=== PATIENT | male | born 1950 | race Caucasian/White ===

== ENCOUNTER 2018-01-18 15:47 | Emergency (ER) | payer MEDICARE, OTHER ==
[2018-01-18 16:29] VITALS: BP 103/64
[2018-01-18] MEDS ORDERED: predniSONE TAB* 20 MG PO ONE (17:09)
[2018-01-18] MEDS ORDERED: Albuterol 2.5 MG/3 ML NEB.SOL* (0.083%) INH ONE (17:09)
--- NOTE | 2018-01-18 17:16 | UC ---
Respiratory Complaint HPI - HPI Summary HPI Summary: 1. ONSET YESTERDAY OF COUGH, HOARSENESS AND CHEST CONGESTION. FEELS WHEEZY AND HAD 102.9 FEVER. 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 2. HAS PARKINSON'S DISEASE AND SO GAIT IS SLIGHTLY UNSTEADY. 2 DAYS AGO PATIENT TOOK A FALL AND LANDED ON RIGHT HIP. IS HAVING DIFFICULTY AMBULATING AND PAIN WITH WEIGHTBEARING SINCE THEN. 3. HEART RATE NOTICED BY RN TO BE IRREGULAR DURING TRIAGE. EKG OBTAINED. PATIENT DENIES CHEST PAIN, NAUSEA. NO HISTORY OF CARDIAC CONDITION. 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 Negative: Dyspnea - Allergies/Home Medications Allergies/Adverse Reactions: Allergies Allergy/AdvReac Type Severity Reaction Status Date / Time No Known Allergies Allergy Verified 01/18/18 16:30 Home Medications: Home Medications oxyCODONE/Acetamin 10/325(NF) [Percocet 10/325 (NF)] 1 tab PO Q4H PRN 01/18/18 [ History Confirmed 01/18/18] PMH/Surg Hx/FS Hx/Imm Hx Other Neurological History: PARKINSONS - Surgical History Surgical History: Yes Surgery Procedure, Year, and Place: right total knee replacement 2011 [facility] [place]. left shoulder rotator cuff repair 2002, 2008 [facility] [place] - Family History Known Family History: Positive: Hypertension - Social History Alcohol Use: Rare Alcohol Amount: 1-2 drinks/day Substance Use Type: None Substance Use Comment - Amount & Last Used: norco Smoking Status (MU): Former Smoker Type: Cigarettes Amount Used/How Often: 1/2 PPD X 30 YRS Length of Time of Smoking/Using Tobacco: 9 YRS Have You Smoked in the Last Year: Yes When Did the Patient Quit Smoking/Using Tobacco: 2004 Household Exposure Type: Cigarettes Review of Systems Constitutional: Fever, Fatigue Respiratory: Shortness Of Breath, Cough, Other - WHEEZE Cardiovascular: Negative Gastrointestinal: Negative Musculoskeletal: Arthralgia All Other Systems Reviewed And Are Negative: Yes Physical Exam Triage Information Reviewed: Yes Appearance: Well-Appearing, No Pain Distress, Well-Nourished Vital Signs: Initial Vital Signs Temp 99.6 F 01/18/18 16:23 Pulse 103 01/18/18 16:23 Resp 14 01/18/18 16:23 BP 103/64 01/18/18 16:23 Pulse Ox 94 01/18/18 16:23 Vital Signs Reviewed: Yes Eyes: Positive: Conjunctiva Clear ENT: Positive: Hearing grossly normal, Pharynx normal, TMs normal Neck: Positive: Supple, Nontender, No Lymphadenopathy Respiratory: Positive: No respiratory distress, No accessory muscle use, Decreased breath sounds, Wheezing - DIFFUSELY Cardiovascular: Positive: Tachycardia - WITH ECTOPY Abdomen Description: Positive: Nontender, Soft Musculoskeletal: Positive: No Edema Neurological: Positive: Alert Psychological: Positive: Age Appropriate Behavior Skin: Negative: rashes UC Diagnostic Evaluation - Laboratory O2 Sat by Pulse Oximetry: 94 Diagnostic Studies Comment: RIGHT HIP XRAY SHOWS OSTEOARTHRITIS BUT NO ACUTE BONY PATHOLOGY - Radiology Xray Interpretation: Positive (See Comments) - CXR SHOWS LEFT LOWER LOBE CONSOLIDATION. Radiology Interpretation Completed By: Radiologist - EKG Cardiac Rate: NL - 99BPM Cardiac Rhythm: Sinus: Normal Ectopy: PACs ST Segment: Normal Re-Evaluation - Re-Evaluation First Eval Re-Evaluation Time: 18:30 - FEELS A BIT BETTER AFTER NEB AND PREDNISONE Change: Improved Respiratory Course/Dx - Course Course Of Treatment: EKG SINUS RHYTHM WITH A SINGLE PAC. PT WITH ECTOPIC BEATS ON EXAM. NO CARDIAC HX. NO CP. ECTOPY MAY BE CONTRIBUTED TO BY CURRENT CONDITION - PNEUMONIA AND HIP INJURY. PT WILL F/U PCP THIS WEEK. - Differential Dx/Diagnosis Provider Diagnoses: 1. LEFT LOWER LOBE PNEUMONIA. 2. RIGHT HIP CONTUSION Discharge - Sign-Out/Discharge Documenting (check all that apply): Discharge/Admit/Transfer - Discharge Plan Condition: Stable Disposition: HOME Prescriptions: levoFLOXacin [Levofloxacin] 750 mg PO DAILY #7 tablet predniSONE TAB* [Deltasone TAB*] 50 mg PO DAILY #2 tab Patient Education Materials: Pneumonia (ED), Hip Contusion (ED) Referrals: Reese Bustos MD [Primary Care Provider] - If Needed Additional Instructions: CHEST XRAY SHOWS LEFT LOWER LOBE PNEUMONIA. TAKE THE ANTIBIOTICS FOR THE FULL 7 DAYS. PREDNISONE FOR 2 MORE DAYS. FOLLOW-UP WITH YOUR PCP THIS WEEK FOR RE- EVALUATION. REPEAT THE CHEST XRAY IN 4-6 WEEKS TO DOCUMENT RESOLUTION. GO TO ER WITHOUT FAIL IF YOU DEVELOP WORSENING SHORTNESS OF BREATH, CHEST PAIN, NAUSEA, SWEATS, DIZZINESS OR ANY OTHER CONCERNING SYMPTOMS. RIGHT HIP XRAY UNREMARKABLE. YOUR SYMPTOMS SHOULD IMPROVE SIGNIFICANTLY OVER THE NEXT 1-2 WEEKS. IF YOU DO NOT IMPROVE EXPECTED FOLLOW-UP WITH YOUR PCP. YOU MAY BENEFIT FROM MORE ADVANCED IMAGING AT THAT TIME. REST. OTC IBUPROFEN OR ALEVE AND/OR TYLENOL NEEDED FOR DISCOMFORT - Billing Disposition and Condition Condition: STABLE Disposition: Home
--- NOTE | 2018-01-18 18:05 | RAD ---
HISTORY: FALL 2 DAYS AGO, PAIN COMPARISONS: None VIEWS: 3, Frontal view of the pelvis with frontal and frog-leg views of the right hip FINDINGS: BONE DENSITY: Normal. BONES: There is no displaced fracture. JOINTS: There is mild right and moderate left osteoarthritis. ALIGNMENT: There is no dislocation. SOFT TISSUES: Unremarkable. OTHER FINDINGS: Degenerative changes noted of the spine. IMPRESSION: 1. OSTEOARTHRITIS. 2. NO RADIOGRAPHIC EVIDENCE FOR HIP FRACTURE. X-RAYS MAY BE NEGATIVE WITH NONDISPLACED HIP FRACTURE, IF THERE IS PERSISTENT CLINICAL CONCERN, RECOMMEND CONSIDERATION OF MRI. IN THE SETTING OF CONTRAINDICATION TO MRI OR LIMITATION IN EMERGENT ACCESS TO MRI, CT WOULD BE SUGGESTED.
--- NOTE | 2018-01-18 18:05 | RAD ---
HISTORY: SOB, WHEEZE, COUGH COMPARISONS: None relevant available at the time of dictation VIEWS: 3: Frontal and lateral views of the chest. FINDINGS: CARDIOMEDIASTINAL SILHOUETTE: The cardiomediastinal silhouette is normal. SJ: The sj are normal. PLEURA: The costophrenic angles are sharp. No pleural abnormalities are noted. LUNG PARENCHYMA: There is confluent alveolar opacification of the left lower lobe. ABDOMEN: The upper abdomen is clear. There is no subphrenic gas. BONES AND SOFT TISSUES: Degenerative changes are noted of the spine and right shoulder. There is postsurgical change to left shoulder. OTHER: None. IMPRESSION: LEFT LOWER LOBE CONSOLIDATION. RECOMMEND FOLLOW-UP UNTIL RESOLUTION TO EXCLUDE UNDERLYING PULMONARY PARENCHYMAL PATHOLOGY.
[2018-01-18] MEDS ORDERED: Levofloxacin TAB* 250 MG PO ONE (18:38)
== END 2018-01-18 19:16 | disposition home or self-care (01) ==
LOC: UCEAST 15:47
DX: J18.9 Pneumonia, unspecified organism (principal); S70.01XA Contusion of right hip, initial encounter; W19.XXXA Unspecified fall, initial encounter; Y93.9 Activity, unspecified; Y92.9 Unspecified place or not applicable; M16.11 Unilateral primary osteoarthritis, right hip; R00.0 Tachycardia, unspecified; G20 Parkinson's disease; Z87.891 Personal history of nicotine dependence; Z82.49 Family history of ischemic heart disease and other diseases of the circulatory system
CPT/HCPCS: 71046; 93005; 99212; A9270-GY; G0463; J7512

== ENCOUNTER 2019-04-07 17:22 | Emergency (ER) | payer MEDICARE, OTHER ==
[2019-04-07] MEDS ORDERED: Tetan/Diph/Pertus SYR(Tdap)* 0.5 ML SYR(BOOSTRIX) use SYR IM ONE (19:44)
--- NOTE | 2019-04-07 20:02 | ED ---
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 Patient tripped and hit his head on the garage floor. Patient denies LOC. Patient also reports an abrasion to the left cheek. The patient rates the pain 0/10 in severity. Symptoms aggravated by nothing. Symptoms alleviated by nothing. Patient denies fever. Patient reports having a tetanus shot within the past year. He does not use blood thinners. - History of Current Complaint Stated Complaint: FALL, FACIAL LACERATION PER PT Time Seen by Provider: 04/07/19 19:44 Hx Obtained From: Patient Mechanism of Injury: Other - Fall Onset/Duration: Sudden Onset, Still Present Aggravating: Nothing Alleviating: Nothing Onset Severity: Mild Current Severity: Mild Pain Intensity: 0 Pain Scale Used: 0-10 Numeric Associated Signs & Symptoms: Negative - Fever, Bruising - Left cheek - Allergy/Home Medications Allergies/Adverse Reactions: Allergies Allergy/AdvReac Type Severity Reaction Status Date / Time No Known Allergies Allergy Verified 01/18/18 16:30 PMH/Surg Hx/FS Hx/Imm Hx Endocrine/Hematology History: Denies: Hx Diabetes, Hx Thyroid Disease Cardiovascular History: Denies: Hx Congestive Heart Failure, Hx Hypertension, Hx Pacemaker/ICD Respiratory History: Denies: Hx Asthma, Hx Chronic Obstructive Pulmonary Disease (COPD), Other Respiratory Problems/Disorders GI History: Denies: Hx Ulcer, Other GI Disorders Musculoskeletal History: Reports: Hx Arthritis - GENERALIZED, Hx Back Problems, Other Musculoskeletal History - SPINAL STENOSIS-GOES OT PAIN CLINIC EVERY FEW MONTHS Sensory History: Reports: Hx Contacts or Glasses - GLASSES Denies: Hx Hearing Aid Opthamlomology History: Reports: Hx Contacts or Glasses - GLASSES Neurological History: Reports: Other Neuro Impairments/Disorders - PARKINSON'S DISEASE, PAIN CLINIC PT Psychiatric History: Denies: Hx Panic Disorder - Surgical History Surgery Procedure, Year, and Place: right total knee replacement [place] [facility] [place]. left shoulder rotator cuff repair 2002, 2008 [facility] [place] Hx Anesthesia Reactions: No Infectious Disease History: No Infectious Disease History: Denies: Hx Hepatitis, Hx Human Immunodeficiency Virus (HIV), Traveled Outside the [place] in Last 30 Days - Family History Known Family History: Positive: Hypertension - Social History Alcohol Use: Rare Alcohol Amount: 1-2 drinks/day Hx Substance Use: No Substance Use Type: Reports: None Substance Use Comment - Amount & Last Used: norco Hx Tobacco Use: Yes Smoking Status (MU): Former Smoker Type: Cigarettes Amount Used/How Often: 1/2 PPD X 30 YRS Length of Time of Smoking/Using Tobacco: 9 YRS Have You Smoked in the Last Year: Yes Review of Systems Negative: Fever Skin: Other - Laceration to left eyebrow Positive: Bruising - Left cheek Neurological: Negative - LOC All Other Systems Reviewed And Are Negative: Yes Physical Exam - Summary Physical Exam Summary: General: Well appearing, no distress HEENT: PERRL, 5cm laceration above left eyebrow, abrasions to left cheek and left nasal bridge without underlying tenderness Cardiovascular: Skin is well perfused Pulmonary: No respiratory distress, no tachypnea Abdomen: Non-distended Skin: 5cm laceration above left eyebrow, abrasions to left cheek and left nasal bridge without underlying tenderness MSK: No cervical tenderness Psych: Normal affect Neuro: A&Ox3, ambulates w steady gait. Triage Information Reviewed: Yes Vital Signs On Initial Exam: Initial Vitals Temp Pulse Resp BP Pulse Ox 98.4 F 84 18 130/89 95 04/07/19 17:25 04/07/19 17:25 04/07/19 17:25 04/07/19 17:25 04/07/19 17:25 Vital Signs Reviewed: Yes Procedures - Laceration/Wound Repair 1 Location: head - Left eyebrow Description: Linear Anesthesia: Local, 1.0%, Lido Length, Depth and Shape: 5cm linear, above left eyebrow Betadine Prep?: No Laceration/Wound Explored: clean Closure: Skin Adhesive, Single Layer Suture Type: Prolene - 6, Vicryl - 1 Number of Sutures: 7 Layer Closure?: Yes Sterile Dressing Applied?: Yes Diagnostics - Vital Signs Vital Signs Temp Pulse Resp BP Pulse Ox 04/07/19 17:25 98.4 F 84 18 130/89 95 - Laboratory Lab Statement: Any lab studies that have been ordered have been reviewed, and results considered in the medical decision making process. - CT Brain CT Interpretation Completed By: Radiologist Summary of CT Findings: 1. No intracranial bleed, suspicious mass, or mass effect. Ventricles appear unremarkable. 2. There is low attenuation change in the white matter most consistent with chronic age related small vessel ischemic change. No acute territorial infarction is seen. These can be initially occult on head CT. 3. Soft tissue injury anterior scalp. No skull fracture. 4. Minimal sinus disease. Dr. Daniel has reviewed this radiology report. Re-Evaluation - Re-Evaluation First Eval Comment: CT negative, laceration repaired. Patient ambulated in the department. Laceration Repair Course/Dx - Course Course Of Treatment: 69-year-old male presents with mechanical ground-level fall and laceration above left eyebrow. Up-to-date on tetanus. Check a head CT , lac repair. - Clinical Impression Provider Diagnoses: Laceration, Closed head injury Discharge ED - Sign-Out/Discharge Documenting (check all that apply): Patient Departure - Discharge Patient Received Moderate/Deep Sedation with Procedure: No - Discharge Plan Condition: Stable Disposition: HOME Patient Education Materials: Laceration (ED), Fall Prevention (ED) Referrals: Reese Bustos MD [Primary Care Provider] - Additional Instructions: Aroldo was seen in the emergency department after fall. His head CT did not show any abnormality's. You received sutures (stitches) today. These need to be removed in 7 days. Please keep the area dry and clean. Return to the emergency department or seek medical attention for drainage, redness to the area , increased pain around the laceration. Once the wound is healed, you can apply sunscreen to help with scar prevention. - Billing Disposition and Condition Condition: STABLE Disposition: Home - Attestation Statements Document Initiated by Hubert: Yes Documenting Scribe: Fredy Sheridan Provider For Whom Hubert is Documenting (Include Credential): Nathaniel Daniel MD Scribe Attestation: I, Fredy Sheridan, scribed for Nathaniel Daniel MD on 04/07/19 at 2329. Scribe Documentation Reviewed: Yes Provider Attestation: The documentation as recorded by the Fredy jorgensen accurately reflects the service I personally performed and the decisions made by me, Nathaniel Daniel MD Status of Scribe Document: Viewed
[2019-04-07] MEDS ORDERED: Bacitracin OINTMENT* 0.5% 0.5 oz TUBE TOPICAL ONE (20:38)
[2019-04-07 21:24] VITALS: BP 119/81
== END 2019-04-07 21:23 | disposition home or self-care (01) ==
LOC: ED 17:22
DX: S01.112A Laceration without foreign body of left eyelid and periocular area, initial encounter (principal); S09.90XA Unspecified injury of head, initial encounter; W01.0XXA Fall on same level from slipping, tripping and stumbling without subsequent striking against object, initial encounter; Y92.015 Private garage of single-family (private) house as the place of occurrence of the external cause; J32.9 Chronic sinusitis, unspecified; G20 Parkinson's disease; Z96.651 Presence of right artificial knee joint; Z87.891 Personal history of nicotine dependence
CPT/HCPCS: 12013; 70450; 90471; 99282; A9270-GY

== ENCOUNTER 2020-01-25 20:32 | Inpatient (IN) ==
[2020-01-25] MEDS ORDERED: Albuterol HFA INHALER 8 gm MDI INH ONE (21:01)
[2020-01-25 21:54] LABS: ABS Lymphocytes 0.6 10^3/ul (1.0-4.8); ABS Monocytes 0.4 10^3/ul (0-0.8); Eosinophil % 0.1 %; Hematocrit 35 % (42-52); Hemoglobin 11.3 g/dL (14.0-18.0); Lymphocyte % 8.7 %; Mean Corpuscular HGB Conc 33 g/dL (31-36); Mean Corpuscular Hemoglobin 25 pg (27-31); Mean Corpuscular Volume 76 fL (80-94); Mean Platelet Volume 10.5 fL (7.4-10.4); Nucleated Red Blood Cells % 0.2; Platelet Count 106 10^3/uL (150-450); Red Blood Count 4.57 10^6 /uL (4.18-5.48); Red Cell Distribution Width 17 % (10-15); White Blood Count 6.8 10^3/uL (3.5-10.8)
[2020-01-25] MEDS ORDERED: cefTRIAXone 1 gm/50 mL NS BAG 1 GM/50 ML BAG IVPB ONE (22:01)
[2020-01-25] MEDS ORDERED: Azithromycin 500 mg/250 ml NS 500 MG/250 ML BAG IVPB ONE (22:02)
[2020-01-25 22:06] LABS: Activated Partial Thrombo Time 24.9 seconds (26.0-38.0); INR 1.42 (0.82-1.09)
[2020-01-25 22:14] LABS: Urine Appearance Cloudy; Urine Bilirubin Negative (Negative); Urine Blood 1+ (Negative); Urine Color Amber; Urine Glucose Negative (Negative); Urine Ketones Trace (Negative); Urine Nitrite Negative (Negative); Urine Protein 2+(100 mg/dL) (Negative); Urine Specific Gravity 1.027 (1.010-1.030); Urine Urobilinogen Negative (Negative)
[2020-01-25 22:20] LABS: Urine Bacteria 1+ (Absent); Urine Granular Casts Present (Absent); Urine Red Blood Cell 3+(>10/hpf) (Absent); Urine Squamous Epithelial Cell Present (Absent); Urine White Blood Cell 1+(6-10/hpf) (Absent)
[2020-01-25 22:23] LABS: ALT < 3 U/L (7-52); AST 8 U/L (13-39); Albumin 3.3 g/dL (3.2-5.2); Alkaline Phosphatase 153 U/L (34-104); Anion Gap 10 mmol/L (2-11); Blood Urea Nitrogen 53 mg/dL (6-24); CO2 Carbon Dioxide 22 mmol/L (22-32); Calcium 9.3 mg/dL (8.6-10.3); Chloride 103 mmol/L (101-111); EGFR African American 62.7 (>60); EGFR Non-African American 51.8 (>60); Globulin 3.2 g/dL (2-4); Glucose 143 mg/dL (70-100); Indirect Bilirubin 0.5 mg/dL (0.3-1.0); Potassium 3.7 mmol/L (3.5-5.0); Sodium 135 mmol/L (135-145); Total Protein 6.5 g/dL (6.4-8.9)
[2020-01-25] MEDS ORDERED: Iodixanol (CONTRAST) 320 MG/ML 100 ML SDV IV ONE (22:30)
[2020-01-25 22:34] LABS: Troponin I 0.03 ng/mL (<0.03)
[2020-01-25] MEDS ORDERED: Lactated Ringers 1000 ml BAG 1,000 ML IV ONE (22:36)
[2020-01-25] MEDS ORDERED: oxyCODONE/Acetamin 10/325(NF) TAB PO PRN (23:37)
[2020-01-26] MEDS ORDERED: Lactated Ringers 1000 ml BAG 1,000 ML IV SCH (01:00)
[2020-01-26] MEDS ORDERED: Enoxaparin 30 MG/0.3 ML SYR(*) SUBCUT SCH (01:00)
[2020-01-26] MEDS: Lidocaine PATCH 5% PATCH TRANSDERM SCH ×2 (02:28→10:54)
[2020-01-26 03:16] LABS: Influenza A Molecular Negative (Negative); Influenza B Molecular Negative (Negative)
[2020-01-26 08:03] LABS: C Reactive Protein 258.25 mg/L (<8.01)
[2020-01-26 08:08] LABS: Troponin I 0.04 ng/mL (<0.03)
[2020-01-26] MEDS: ceFAZolin 2 GM PREMIX in ORs 2 GM/50 ML BAG IVPB SCH ×2 (10:45→17:36)
[2020-01-26] MEDS: LINACLOTIDE 145 MG PO SCH (10:55)
[2020-01-26] MEDS: SOLIFENACIN 10 MG PO SCH (10:55)
[2020-01-26 12:55] LABS: ABS Lymphocytes 0.6 10^3/ul (1.0-4.8); ABS Monocytes 0.3 10^3/ul (0-0.8); Eosinophil % 0.3 %; Hematocrit 31 % (42-52); Hemoglobin 10.5 g/dL (14.0-18.0); Lymphocyte % 9.1 %; Mean Corpuscular HGB Conc 34 g/dL (31-36); Mean Corpuscular Hemoglobin 25 pg (27-31); Mean Corpuscular Volume 75 fL (80-94); Mean Platelet Volume 10.8 fL (7.4-10.4); Nucleated Red Blood Cells % 0.2; Platelet Count 80 10^3/uL (150-450); Red Blood Count 4.18 10^6 /uL (4.18-5.48); Red Cell Distribution Width 17 % (10-15); White Blood Count 6.7 10^3/uL (3.5-10.8)
[2020-01-26 13:46] LABS: BUN/Creatinine Ratio 41.7 (8-20); Calcium 8.6 mg/dL (8.6-10.3); EGFR African American 58.7 (>60); EGFR Non-African American 48.5 (>60); Potassium 3.8 mmol/L (3.5-5.0)
[2020-01-26 13:49] LABS: Microcytosis 2+
[2020-01-26 13:51] LABS: Burr Cells 1+
[2020-01-26] MEDS ORDERED: Gadoteridol (CONTRAST) 279.3 MG/ML 10 ML IV ONE (14:27)
[2020-01-26] MEDS ORDERED: Lorazepam PYXIS KEY PRN (14:27)
[2020-01-26] MEDS ORDERED: LORazepam 2 mg VIAL 1 ml IV PUSH ONE (14:28)
[2020-01-26] MEDS ORDERED: Perflutren Lipid Microsphere 3 ML VIAL ONE (14:43)
[2020-01-26] MEDS: CARBIDOPA LEVODOPA PO SCH (17:37)
[2020-01-26] MEDS ORDERED: Furosemide 20 mg/2 ml IV VIAL IV ONE (19:42)
[2020-01-26] MEDS ORDERED: Morphine 2 MG/ML SYRINGE ONE (20:04)
[2020-01-26] MEDS: Morphine 2 MG/ML SYRINGE IV PRN (20:07)
[2020-01-26] MEDS ORDERED: CARBIDOPA LEVODOPA PO SCH (21:00)
[2020-01-26] MEDS ORDERED: cefTRIAXone 1 gm/50 mL NS BAG 1 GM/50 ML BAG IVPB SCH (22:00)
[2020-01-26] MEDS ORDERED: Azithromycin IV(*) 250 MG in NS 0.9% 250 ml 250 ML IVPB SCH (22:00)
[2020-01-26] MEDS: Lidocaine Patch REMOVE PATCH PATCH OFF SCH (22:12)
[2020-01-27] MEDS: ceFAZolin 2 GM PREMIX in ORs 2 GM/50 ML BAG IVPB SCH ×3 (01:07→16:25)
[2020-01-27 05:18] LABS: ABS Lymphocytes 1.1 10^3/ul (1.0-4.8); ABS Monocytes 0.6 10^3/ul (0-0.8); Eosinophil % 0.3 %; Hematocrit 30 % (42-52); Hemoglobin 9.9 g/dL (14.0-18.0); Lymphocyte % 11.6 %; Mean Corpuscular HGB Conc 33 g/dL (31-36); Mean Corpuscular Hemoglobin 25 pg (27-31); Mean Corpuscular Volume 75 fL (80-94); Mean Platelet Volume 10.8 fL (7.4-10.4); Nucleated Red Blood Cells % 0.1; Platelet Count 84 10^3/uL (150-450); Red Blood Count 4.03 10^6 /uL (4.18-5.48); Red Cell Distribution Width 18 % (10-15); White Blood Count 9.5 10^3/uL (3.5-10.8)
[2020-01-27 05:29] LABS: ALT 3 U/L (7-52); AST 10 U/L (13-39); Albumin 2.8 g/dL (3.2-5.2); Alkaline Phosphatase 171 U/L (34-104); Anion Gap 9 mmol/L (2-11); BUN/Creatinine Ratio 40.8 (8-20); Blood Urea Nitrogen 60 mg/dL (6-24); C Reactive Protein 251.12 mg/L (<8.01); CO2 Carbon Dioxide 23 mmol/L (22-32); Calcium 8.4 mg/dL (8.6-10.3); Chloride 103 mmol/L (101-111); EGFR African American 57.3 (>60); EGFR Non-African American 47.4 (>60); Globulin 2.8 g/dL (2-4); Glucose 113 mg/dL (70-100); Potassium 3.7 mmol/L (3.5-5.0); Sodium 135 mmol/L (135-145); Total Protein 5.6 g/dL (6.4-8.9)
[2020-01-27] MEDS: Morphine 2 MG/ML SYRINGE IV PRN ×4 (07:04→16:32)
[2020-01-27] MEDS: CARBIDOPA LEVODOPA PO SCH (07:53)
[2020-01-27] MEDS: LINACLOTIDE 145 MG PO SCH (07:53)
[2020-01-27] MEDS: SOLIFENACIN 10 MG PO SCH (07:54)
[2020-01-27] MEDS: Enoxaparin 30 MG/0.3 ML SYR(*) SUBCUT SCH (07:54)
[2020-01-27] MEDS: Lidocaine PATCH 5% PATCH TRANSDERM SCH (07:55)
[2020-01-27] MEDS ORDERED: Diazepam 5 mg TAB (*) PO ONE (09:24)
[2020-01-27] MEDS ORDERED: LORazepam 2 mg VIAL 1 ml IV PUSH ONE (09:29)
[2020-01-27] MEDS ORDERED: Lorazepam PYXIS KEY PRN (09:29)
[2020-01-27] MEDS ORDERED: CMCS: Carbidopa/Levodopa ODT (NF) 25/100 ODT PO SCH ×2 (10:00→21:00)
[2020-01-27] MEDS ORDERED: Acetaminophen IV 1 GM/100ML 100 ML IVPB SCH (13:30)
[2020-01-27] MEDS: CMCS: Carbidopa/Levodopa ODT (NF) 25/100 ODT PO SCH ×3 (13:36→20:36)
[2020-01-27 15:12] LABS: Amylase 12 U/L (29-103)
[2020-01-27] MEDS: Lidocaine Patch REMOVE PATCH PATCH OFF SCH (21:24)
[2020-01-28] MEDS: Morphine 2 MG/ML SYRINGE IV PRN ×3 (00:16→12:43)
[2020-01-28] MEDS: ceFAZolin 2 GM PREMIX in ORs 2 GM/50 ML BAG IVPB SCH ×2 (00:30→11:55)
[2020-01-28 07:02] LABS: ALT < 3 U/L (7-52); AST 7 U/L (13-39); Albumin 2.7 g/dL (3.2-5.2); Albumin/Globulin Ratio 0.9 (1-3); Alkaline Phosphatase 150 U/L (34-104); Anion Gap 8 mmol/L (2-11); BUN/Creatinine Ratio 40.9 (8-20); Blood Urea Nitrogen 45 mg/dL (6-24); CO2 Carbon Dioxide 24 mmol/L (22-32); Calcium 8.1 mg/dL (8.6-10.3); Chloride 108 mmol/L (101-111); EGFR African American 80.1 (>60); EGFR Non-African American 66.2 (>60); Glucose 94 mg/dL (70-100); Magnesium 2.7 mg/dL (1.9-2.7); Phosphorus 3.4 mg/dL (2.5-5.0); Potassium 4.3 mmol/L (3.5-5.0); Sodium 140 mmol/L (135-145); Total Protein 5.7 g/dL (6.4-8.9)
[2020-01-28 07:16] LABS: Hematocrit 29 % (42-52); Hemoglobin 9.6 g/dL (14.0-18.0); Mean Corpuscular HGB Conc 33 g/dL (31-36); Mean Corpuscular Hemoglobin 25 pg (27-31); Mean Corpuscular Volume 74 fL (80-94); Mean Platelet Volume 11.1 fL (7.4-10.4); Platelet Count 100 10^3/uL (150-450); Red Blood Count 3.88 10^6 /uL (4.18-5.48); Red Cell Distribution Width 17 % (10-15); White Blood Count 8.6 10^3/uL (3.5-10.8)
[2020-01-28] MEDS ORDERED: Naloxone 0.4 mg VIAL 0.4 mg/ml 1 ml VIAL ONE (07:21)
[2020-01-28] MEDS ORDERED: Midazolam 5 mg/5 ml VIAL 1 mg/ml 5 ml VIAL (5 mg) ONE (07:21)
[2020-01-28] MEDS ORDERED: Flumazenil 0.5 mg/5 ml 0.1 MG/ML 5 ml VIAL ONE (07:21)
[2020-01-28] MEDS ORDERED: fentaNYL 100 mcg/2 ml 50 MCG/ML VIAL ONE (07:21)
[2020-01-28] MEDS: LINACLOTIDE 145 MG PO SCH (11:24)
[2020-01-28] MEDS: CMCS: Carbidopa/Levodopa ODT (NF) 25/100 ODT PO SCH ×4 (11:24→20:04)
[2020-01-28] MEDS: NS 0.9% IVPB SCH ×4 (11:25→21:35)
[2020-01-28] MEDS: OXACILLIN IVPB SCH ×4 (11:25→21:35)
[2020-01-28] MEDS: SOLIFENACIN 10 MG PO SCH (11:25)
[2020-01-28] MEDS: Enoxaparin 30 MG/0.3 ML SYR(*) SUBCUT SCH (11:26)
[2020-01-28] MEDS: Lidocaine PATCH 5% PATCH TRANSDERM SCH (11:26)
[2020-01-28] MEDS ORDERED: Iodixanol (CONTRAST) 320 MG/ML 100 ML SDV IV ONE (13:31)
[2020-01-28] MEDS: Lidocaine Patch REMOVE PATCH PATCH OFF SCH (20:05)
[2020-01-29] MEDS: OXACILLIN IVPB SCH ×6 (02:33→22:15)
[2020-01-29] MEDS: NS 0.9% IVPB SCH ×6 (02:33→22:15)
[2020-01-29 05:59] LABS: Hematocrit 30 % (42-52); Hemoglobin 9.9 g/dL (14.0-18.0); Mean Corpuscular HGB Conc 33 g/dL (31-36); Mean Corpuscular Hemoglobin 25 pg (27-31); Mean Corpuscular Volume 75 fL (80-94); Platelet Count 125 10^3/uL (150-450); Red Blood Count 4.02 10^6 /uL (4.18-5.48); Red Cell Distribution Width 17 % (10-15); White Blood Count 10.8 10^3/uL (3.5-10.8)
[2020-01-29 06:16] LABS: BUN/Creatinine Ratio 36.7 (8-20); EGFR African American 100.9 (>60); EGFR Non-African American 83.4 (>60); Potassium 4.1 mmol/L (3.5-5.0)
[2020-01-29] MEDS: CMCS: Carbidopa/Levodopa ODT (NF) 25/100 ODT PO SCH ×4 (08:57→19:51)
[2020-01-29] MEDS: Enoxaparin 30 MG/0.3 ML SYR(*) SUBCUT SCH (08:59)
[2020-01-29] MEDS: Lidocaine PATCH 5% PATCH TRANSDERM SCH (09:06)
[2020-01-29] MEDS: SOLIFENACIN 10 MG PO SCH (09:07)
[2020-01-29] MEDS: LINACLOTIDE 145 MG PO SCH (09:07)
[2020-01-29] MEDS ORDERED: Iohexol 300 (CONTRAST) 10 ML SDV IV ONE (13:15)
[2020-01-29] MEDS: Lactated Ringers 1000 ml BAG 1,000 ML IV SCH (13:30)
[2020-01-29] MEDS ORDERED: Iodixanol (CONTRAST) 320 MG/ML 100 ML SDV IV ONE (15:45)
[2020-01-29] MEDS: Lidocaine Patch REMOVE PATCH PATCH OFF SCH (19:53)
[2020-01-29] MEDS: Morphine 2 MG/ML SYRINGE IV PRN (22:05)
[2020-01-29 22:49] LABS: Hematocrit 31 % (42-52); Hemoglobin 10.1 g/dL (14.0-18.0); Mean Corpuscular HGB Conc 33 g/dL (31-36); Mean Corpuscular Hemoglobin 24 pg (27-31); Mean Corpuscular Volume 74 fL (80-94); Mean Platelet Volume 9.8 fL (7.4-10.4); Platelet Count 152 10^3/uL (150-450); Red Blood Count 4.17 10^6 /uL (4.18-5.48); Red Cell Distribution Width 17 % (10-15); White Blood Count 13.4 10^3/uL (3.5-10.8)
[2020-01-29 22:51] LABS: INR 1.61 (0.82-1.09)
[2020-01-29 23:00] LABS: BUN/Creatinine Ratio 35.5 (8-20); Calcium 7.9 mg/dL (8.6-10.3); EGFR African American 97.2 (>60); EGFR Non-African American 80.3 (>60); Potassium 4.6 mmol/L (3.5-5.0)
[2020-01-29 23:21] LABS: Microcytosis 2+
[2020-01-29 23:23] LABS: ABS Lymphocytes 1.3 10^3/ul (1.0-4.8); ABS Monocytes 0.6 10^3/ul (0-0.8); Lymphocyte % 9.4 %
[2020-01-30] MEDS: Lactated Ringers 1000 ml BAG 1,000 ML IV SCH ×2 (01:56→20:47)
[2020-01-30] MEDS: OXACILLIN IVPB SCH ×3 (01:56→09:30)
[2020-01-30] MEDS: NS 0.9% IVPB SCH ×3 (01:56→09:30)
[2020-01-30] MEDS: Morphine 2 MG/ML SYRINGE IV PRN ×3 (06:13→22:02)
[2020-01-30] MEDS ORDERED: NS 0.9% 100 ml BAG 100 ML ONE (09:01)
[2020-01-30] MEDS: Enoxaparin 30 MG/0.3 ML SYR(*) SUBCUT SCH (09:17)
[2020-01-30] MEDS: CMCS: Carbidopa/Levodopa ODT (NF) 25/100 ODT PO SCH ×4 (09:20→21:38)
[2020-01-30] MEDS: Lidocaine PATCH 5% PATCH TRANSDERM SCH (09:31)
[2020-01-30] MEDS: LINACLOTIDE 145 MG PO SCH (12:37)
[2020-01-30] MEDS: SOLIFENACIN 10 MG PO SCH (12:53)
[2020-01-30] MEDS ORDERED: Vancomycin per Pharmacy 1 EA NOTE FOLLOW UP PRN (13:10)
[2020-01-30] MEDS ORDERED: NS 0.9% IVPB ONE (13:30)
[2020-01-30] MEDS ORDERED: VANCOMYCIN IVPB ONE (13:30)
[2020-01-30] MEDS: Vancomycin(*) 1,250 MG in NS 0.9% 250 ml 250 ML IV SCH (21:38)
[2020-01-30] MEDS: Lidocaine Patch REMOVE PATCH PATCH OFF SCH (21:39)
[2020-01-31] MEDS: Morphine 2 MG/ML SYRINGE IV PRN ×5 (04:14→21:08)
[2020-01-31 04:33] LABS: ABS Lymphocytes 1.6 10^3/ul (1.0-4.8); ABS Monocytes 0.5 10^3/ul (0-0.8); Eosinophil % 0.3 %; Hematocrit 30 % (42-52); Hemoglobin 9.5 g/dL (14.0-18.0); Lymphocyte % 8.8 %; Mean Corpuscular HGB Conc 32 g/dL (31-36); Mean Corpuscular Hemoglobin 24 pg (27-31); Mean Corpuscular Volume 75 fL (80-94); Mean Platelet Volume 9.8 fL (7.4-10.4); Platelet Count 175 10^3/uL (150-450); Red Blood Count 3.99 10^6 /uL (4.18-5.48); Red Cell Distribution Width 17 % (10-15); White Blood Count 18.2 10^3/uL (3.5-10.8)
[2020-01-31 04:47] LABS: BUN/Creatinine Ratio 35.1 (8-20); Calcium 7.7 mg/dL (8.6-10.3); EGFR African American 120.9 (>60); EGFR Non-African American 99.9 (>60); Potassium 4.2 mmol/L (3.5-5.0)
[2020-01-31] MEDS: Vancomycin(*) 1,250 MG in NS 0.9% 250 ml 250 ML IV SCH (05:31)
[2020-01-31] MEDS: Enoxaparin 30 MG/0.3 ML SYR(*) SUBCUT SCH (08:58)
[2020-01-31] MEDS: Lidocaine PATCH 5% PATCH TRANSDERM SCH (08:58)
[2020-01-31] MEDS: CMCS: Carbidopa/Levodopa ODT (NF) 25/100 ODT PO SCH ×4 (09:00→21:08)
[2020-01-31] MEDS: LINACLOTIDE 145 MG PO SCH (09:01)
[2020-01-31] MEDS: SOLIFENACIN 10 MG PO SCH (09:02)
[2020-01-31] MEDS: NS 0.9% IVPB SCH ×4 (10:32→21:05)
[2020-01-31] MEDS: OXACILLIN IVPB SCH ×4 (10:32→21:05)
[2020-01-31] MEDS ORDERED: Vancomycin Trough Check NOTE FOLLOW UP ONE (13:30)
[2020-01-31 13:50] LABS: Blood Urea Nitrogen 25 mg/dL (6-24); EGFR African American 130.6 (>60); EGFR Non-African American 107.9 (>60)
[2020-01-31] MEDS: Lactated Ringers 1000 ml BAG 1,000 ML IV SCH (17:11)
[2020-01-31] MEDS: Lidocaine Patch REMOVE PATCH PATCH OFF SCH (21:08)
[2020-02-01] MEDS: OXACILLIN IVPB SCH ×5 (01:34→17:00)
[2020-02-01] MEDS: NS 0.9% IVPB SCH ×5 (01:34→17:00)
[2020-02-01] MEDS: Morphine 2 MG/ML SYRINGE IV PRN ×3 (04:39→18:53)
[2020-02-01 05:47] LABS: Hematocrit 27 % (42-52); Hemoglobin 8.7 g/dL (14.0-18.0); Mean Corpuscular HGB Conc 33 g/dL (31-36); Mean Corpuscular Hemoglobin 25 pg (27-31); Mean Corpuscular Volume 75 fL (80-94); Mean Platelet Volume 9.8 fL (7.4-10.4); Platelet Count 175 10^3/uL (150-450); Red Blood Count 3.55 10^6 /uL (4.18-5.48); Red Cell Distribution Width 17 % (10-15); White Blood Count 17.9 10^3/uL (3.5-10.8)
[2020-02-01 06:15] LABS: BUN/Creatinine Ratio 30.6 (8-20); Calcium 7.4 mg/dL (8.6-10.3); EGFR African American 130.6 (>60); EGFR Non-African American 107.9 (>60); Potassium 4.1 mmol/L (3.5-5.0)
[2020-02-01] MEDS: LINACLOTIDE 145 MG PO SCH (09:20)
[2020-02-01] MEDS: Lidocaine PATCH 5% PATCH TRANSDERM SCH (09:21)
[2020-02-01] MEDS: Enoxaparin 30 MG/0.3 ML SYR(*) SUBCUT SCH (09:21)
[2020-02-01] MEDS: CMCS: Carbidopa/Levodopa ODT (NF) 25/100 ODT PO SCH ×3 (09:22→17:00)
[2020-02-01] MEDS: SOLIFENACIN 10 MG PO SCH (09:26)
[2020-02-01 19:05] VITALS: BP 115/67
[2020-02-02] MEDS ORDERED: Enoxaparin 40 MG/0.4 ML SYR(*) SUBCUT SCH (09:00)
== END 2020-02-01 19:00 | disposition short-term general hospital (02) | DRG 871 ==
LOC: ED 20:32 → MED 01-26 01:06 → ICU 01-26 18:45 → MED 01-29 09:47 → ICU 01-29 23:12
PROVIDERS: ADMIT Internal Medicine; ATTEND Internal Medicine Critical Care Medicine